=== PATIENT | male | born 1950 | race Caucasian/White ===

== ENCOUNTER 2017-09-03 10:41 | Outpatient (CLI) | payer BC ==
--- NOTE | 2017-09-03 11:48 | RAD ---
PA AND LATERAL CHEST XRAY: DATE: 09/03/17. HISTORY: Dyspnea. COMPARISON: 09/04/16. FINDINGS: The cardiac silhouette and pulmonary vasculature are within normal limits. Lungs remain hyperexpande d with flattening of the hemidiaphragms suggesting an element of COPD. Lungs are otherwise clear. V ascular calcifications are seen in a tortuous thoracic aorta. Degenerative changes are again noted i n the spine. There has been no interval change compared to the prior exam. IMPRESSION: 1. No acute cardiopulmonary process. 2. Findings again suggesting chronic obstructive pulmonary disease. POS: LEONEL
== END 2017-09-03 10:42 | disposition home or self-care (01) ==
LOC: RAD 10:41
PROVIDERS: ATTEND Internal Medicine Critical Care Medicine
DX: R06.00 Dyspnea, unspecified (principal)
CPT/HCPCS: 71046

== ENCOUNTER 2018-09-17 09:36 | Outpatient (CLI) | payer BC ==
--- NOTE | 2018-09-17 10:58 | RAD ---
RADIOGRAPH CHEST 2 VIEWS: DATE: 09-17-18 HISTORY: 68-year-old female with dyspnea. FINDINGS: There is hyperinflation of the lungs, consistent with COPD. The thoracic aorta is tortuous and ectat ic. There is no evidence of air space density, pneumothorax, or pulmonary edema. There is no cardio megaly or pleural effusion. IMPRESSION: 1) No acute cardiopulmonary findings. 2) Emphysema. 3) Ectasia of thoracic aorta. saul POS: JOSE
== END 2018-09-17 09:37 | disposition home or self-care (01) ==
LOC: RAD 09:36
PROVIDERS: ATTEND Internal Medicine Critical Care Medicine
DX: R06.00 Dyspnea, unspecified (principal); J43.9 Emphysema, unspecified; I77.810 Thoracic aortic ectasia
CPT/HCPCS: 71046

== ENCOUNTER 2019-02-28 09:34 | Outpatient (CLI) | payer BC ==
--- NOTE | 2019-02-28 10:57 | ULT ---
Sonogram abdomen complete HISTORY: Abdominal pain. Diarrhea. FINDINGS: Gallbladder has a normal appearance without evidence of stones. Common duct is 0.2 cm. Live r unremarkable without focal mass or intrahepatic biliary dilatation. No free fluid. Prominent calcification throughout the visualized portions of abdominal aorta. The spleen, kidneys, a nd visualized portions of inferior vena cava and pancreas are unremarkable. IMPRESSION: No evidence of gallstones or biliary obstruction. Prominent atherosclerosis.
== END 2019-02-28 09:35 | disposition home or self-care (01) ==
LOC: SCSULT 09:34
PROVIDERS: ATTEND Family Medicine
DX: K59.1 Functional diarrhea (principal); I70.0 Atherosclerosis of aorta
CPT/HCPCS: 93975

== ENCOUNTER 2021-05-30 08:28 | Outpatient (CLI) | payer MEDICARE, BC | END 2021-05-30 08:29 | disposition home or self-care (01) | LOC: RAD 08:28 | PROVIDERS: ATTEND Internal Medicine Critical Care Medicine | DX: R06.00 Dyspnea, unspecified (principal); J43.9 Emphysema, unspecified; I27.20 Pulmonary hypertension, unspecified | CPT/HCPCS: 71046 ==

== ENCOUNTER 2022-08-28 10:52 | Outpatient (CLI) | payer MEDICARE, BC | END 2022-08-28 10:53 | disposition home or self-care (01) | LOC: RAD 10:52 | PROVIDERS: ATTEND Internal Medicine Critical Care Medicine | DX: R06.00 Dyspnea, unspecified (principal); R91.8 Other nonspecific abnormal finding of lung field; I77.810 Thoracic aortic ectasia; Q25.46 Tortuous aortic arch; I28.9 Disease of pulmonary vessels, unspecified | CPT/HCPCS: 71046 ==

== ENCOUNTER 2023-03-15 15:31 | Inpatient (IN) | payer BC, MEDICARE ==
[2023-03-15] MEDS ORDERED: Lidocaine 1% w/Epinephrine 1:100K 20 ML VIAL ONE (16:32)
[2023-03-15] MEDS ORDERED: Ipratropium/Albuterol 3 ML NEB ONE (17:07)
[2023-03-15] MEDS ORDERED: Morphine 4 MG/ML VIAL ONE (18:17)
[2023-03-15 18:59] LABS: #Neutrophils 3.6 thou/uL (1.40-6.50); %Basophils 0.3 % (0.0-1.0); %Lymphocytes 5.4 % (21.0-51.0); %Neutrophils 93.3 % (42.0-75.0); Hematocrit 49.9 % (42.0-52.0); Hemoglobin 16.5 g/dL (14.0-18.0); Mean Corpuscular HGB CONC 33.1 g/dL (32.0-36.0); Mean Corpuscular Hemoglobin 35.8 pg (27.0-31.0); Mean Corpuscular Volume 108.2 fl (78.0-98.0); Mean Platelet Volume 9.6 fL (7.4-10.4); Platelet Count 179 10x3/uL (130-400); RBC Distribution Width 14.2 % (11.5-14.5); Red Blood Cell (RBC) Count 4.61 mill/uL (4.70-6.10); White Blood Cell (WBC) Count 3.9 10x3/uL (4.8-10.8)
[2023-03-15 19:25] LABS: ALT (SGPT) 113 U/L (8-55); AST (SGOT) 109 U/L (5-34); Albumin 3.9 g/dL (3.4-4.8); Alkaline Phosphatase 69 U/L (40-110); Anion Gap 14 mmol/L (10-20); BUN (Urea Nitrogen) 18 mg/dL (8.4-25.7); Bilirubin, Total 1.1 mg/dL (0.2-1.2); Calc. Creatinine Clearance 0 mL/min (70-130); Calcium 8.5 mg/dL (7.8-10.44); Carbon Dioxide 30 mmol/L (23-31); Chloride 96 mmol/L (98-107); Estimated GFR 93; Globulin 3.4 g/dL (2.4-3.5); Glucose 162 mg/dL (83-110); Potassium 4.1 mmol/L (3.5-5.1); Protein, Total 7.3 g/dL (5.8-8.1); Sodium 136 mmol/L (136-145)
[2023-03-15] MEDS ORDERED: Ondansetron ODT 4 MG TAB PO PRN (20:34)
[2023-03-15] MEDS ORDERED: Acetaminophen 650 MG Suppository PR PRN (20:34)
[2023-03-15] MEDS ORDERED: Ondansetron PF 4 MG/2 ML Vial IVP PRN (20:34)
[2023-03-15] MEDS ORDERED: Acetaminophen 325 MG TAB PO PRN (20:34)
[2023-03-15] MEDS ORDERED: Ipratropium/Albuterol 3 ML NEB NEB PRN ×2 (20:37→22:06)
[2023-03-15] MEDS ORDERED: Melatonin 3 MG TAB PO PRN (21:47)
[2023-03-15] MEDS: Oxazepam 10 MG CAP PO SCH (22:41)
[2023-03-16] MEDS: methylPREDNISolone Sod Succ 40 MG VIAL IVP SCH ×3 (00:27→12:33)
[2023-03-16 03:42] LABS: #Monocytes 0.2 thou/uL (0.11-0.59); #Neutrophils 3.6 thou/uL (1.40-6.50); %Basophils 0.2 % (0.0-1.0); %Lymphocytes 8.5 % (21.0-51.0); %Monocytes 5.6 % (0.0-10.0); %Neutrophils 85.5 % (42.0-75.0); Hematocrit 48.1 % (42.0-52.0); Hemoglobin 15.8 g/dL (14.0-18.0); Mean Corpuscular HGB CONC 32.8 g/dL (32.0-36.0); Mean Corpuscular Volume 106.4 fl (78.0-98.0); Mean Platelet Volume 9.8 fL (7.4-10.4); Platelet Count 166 10x3/uL (130-400); RBC Distribution Width 13.9 % (11.5-14.5); Red Blood Cell (RBC) Count 4.52 mill/uL (4.70-6.10); White Blood Cell (WBC) Count 4.3 10x3/uL (4.8-10.8)
[2023-03-16 04:15] LABS: Anion Gap 13 mmol/L (10-20); BUN (Urea Nitrogen) 18 mg/dL (8.4-25.7); Calc. Creatinine Clearance 62 mL/min (70-130); Calcium 8.4 mg/dL (7.8-10.44); Carbon Dioxide 32 mmol/L (23-31); Chloride 96 mmol/L (98-107); Estimated GFR 94; Glucose 112 mg/dL (83-110); Potassium 4.8 mmol/L (3.5-5.1); Sodium 136 mmol/L (136-145)
[2023-03-16 04:32] LABS: HBSAg Index 0.23 S/CO (0-0.99); Hep A IgM AB Non-Reactive S/CO (NonReactive); Hep A IgM S/CO 0.16 S/CO (0-0.79); Hep B Surf Ag Non-Reactive S/CO (NonReactive); Hep C IgG Ab Non-Reactive S/CO (NonReactive); Hep C Index 0.14 S/CO (0-0.79)
[2023-03-16 04:43] LABS: HBCM Index 1.69 S/CO (0-0.79); Hepatitis B Core IgM Abs Reactive S/CO (NonReactive)
[2023-03-16] MEDS: Oxazepam 10 MG CAP PO SCH ×3 (06:35→21:14)
[2023-03-16] MEDS: Folic Acid/Vit B Comp W-C PO SCH (08:38)
[2023-03-16] MEDS: Multivitamin W/ Minerals 1 TAB PO SCH (08:38)
[2023-03-16] MEDS: Thiamine 100 MG TAB PO SCH (08:38)
[2023-03-16] MEDS: Famotidine 20 MG TAB PO SCH ×2 (08:38→21:14)
[2023-03-16 10:54] VITALS: BMI 18.5
[2023-03-16] MEDS: Ipratropium/Albuterol 3 ML NEB NEB SCH ×2 (18:25→23:41)
[2023-03-17] MEDS: Oxazepam 10 MG CAP PO SCH ×3 (05:48→21:35)
[2023-03-17 06:33] LABS: HBSAB Concentration Less than 8.00 mIU/mL; Hep B Core Total Ab Non-Reactive (NonReactive); Hep B Core Total Index 0.09 S/CO (0-0.79); Hep B Surf AB Non-Reactive (NonReactive); Hep B Surf Ag Non-Reactive S/CO (NonReactive)
[2023-03-17] MEDS: Ipratropium/Albuterol 3 ML NEB NEB SCH ×4 (07:18→23:00)
[2023-03-17] MEDS: Multivitamin W/ Minerals 1 TAB PO SCH (08:24)
[2023-03-17] MEDS: Famotidine 20 MG TAB PO SCH ×2 (08:24→21:35)
[2023-03-17] MEDS: Folic Acid/Vit B Comp W-C PO SCH (08:24)
[2023-03-17] MEDS: Thiamine 100 MG TAB PO SCH (08:24)
[2023-03-17] MEDS: methylPREDNISolone Sod Succ 40 MG VIAL IVP SCH (08:25)
[2023-03-17] MEDS: Ibuprofen 200 MG TAB PO PRN (08:50)
[2023-03-17] MEDS ORDERED: Iopamidol-370 76% 500 ML MDV (1 ML CHARGE) ONE (09:27)
[2023-03-17 10:07] LABS: HIV (1/2) Antibody/Antigen Non-Reactive (NonReactive); HIV 1/2 INDEX 0.25 S/CO (<1.00)
[2023-03-18] MEDS: Oxazepam 10 MG CAP PO SCH ×3 (05:51→21:04)
[2023-03-18] MEDS: Ipratropium/Albuterol 3 ML NEB NEB SCH ×3 (07:38→18:53)
[2023-03-18] MEDS ORDERED: LevoFLOXacin 750 MG TAB PO SCH (08:00)
[2023-03-18] MEDS ORDERED: Piperacillin/Tazobactam 3.375 GM in Sodium Chloride 0.9% 100 ML IVPB SCH (09:15)
[2023-03-18] MEDS: Folic Acid/Vit B Comp W-C PO SCH (09:26)
[2023-03-18] MEDS: Famotidine 20 MG TAB PO SCH ×2 (09:27→20:22)
[2023-03-18] MEDS: methylPREDNISolone Sod Succ 40 MG VIAL IVP SCH (09:27)
[2023-03-18] MEDS: Multivitamin W/ Minerals 1 TAB PO SCH (09:27)
[2023-03-18] MEDS: Thiamine 100 MG TAB PO SCH (09:27)
[2023-03-18] MEDS: Ibuprofen 200 MG TAB PO PRN (09:29)
[2023-03-18] MEDS: Piperacillin/Tazobactam 3.375 GM in Sodium Chloride 0.9% 100 ML IVPB SCH ×2 (14:38→21:05)
[2023-03-19] MEDS: Ipratropium/Albuterol 3 ML NEB NEB SCH ×2 (00:26→07:17)
[2023-03-19] MEDS: Piperacillin/Tazobactam 3.375 GM in Sodium Chloride 0.9% 100 ML IVPB SCH (06:00)
[2023-03-19] MEDS ORDERED: LevoFLOXacin 750 MG TAB PO SCH (06:00)
[2023-03-19] MEDS: Oxazepam 10 MG CAP PO SCH (06:01)
[2023-03-19] MEDS: Multivitamin W/ Minerals 1 TAB PO SCH (08:27)
[2023-03-19] MEDS: Folic Acid/Vit B Comp W-C PO SCH (08:27)
[2023-03-19] MEDS: Famotidine 20 MG TAB PO SCH (08:27)
[2023-03-19] MEDS: methylPREDNISolone Sod Succ 40 MG VIAL IVP SCH (08:27)
[2023-03-19] MEDS: Thiamine 100 MG TAB PO SCH (08:27)
[2023-03-19 12:29] VITALS: BP 119/73; TEMP 98
[2023-03-20 19:38] LABS: HBV as IU/mL HBV DNA not detected IU/mL (.)
== END 2023-03-19 12:19 | disposition home or self-care (01) | DRG 199 ==
LOC: ERS 15:31 → CCU 19:40 → T4-A 03-16 15:34
PROVIDERS: ADMIT Student in an Organized Health Care Education/Training Program; ATTEND Family Medicine
PROC: 0W9930Z Drainage of Right Pleural Cavity with Drainage Device, Percutaneous Approach (ICD-10-PCS; principal; 2023-03-15)
DX: J93.83 Other pneumothorax (principal); J18.9 Pneumonia, unspecified organism; J96.01 Acute respiratory failure with hypoxia; E44.0 Moderate protein-calorie malnutrition; B19.10 Unspecified viral hepatitis B without hepatic coma; Z79.899 Other long term (current) drug therapy; Z79.82 Long term (current) use of aspirin; Z98.890 Other specified postprocedural states; F41.9 Anxiety disorder, unspecified; Z87.891 Personal history of nicotine dependence; M81.0 Age-related osteoporosis without current pathological fracture; R74.01 Elevation of levels of liver transaminase levels; J44.9 Chronic obstructive pulmonary disease, unspecified
CPT/HCPCS: 36415; 71045; 71250; 74177; 76705; 80048; 80053; 80074; 85025; 86704; 86706; 86707; 87340; 87350; 87389; 87517; 94640; 96374; J2270; J2543; J2920; J3490; J7620; Q9967

== ENCOUNTER 2023-06-21 09:53 | Day surgery (SDC) | payer BC, MEDICARE ==
[2023-06-20 12:48] VITALS: BMI 19.4
[2023-06-21] MEDS ORDERED: PROPOFOL 20 ML ONE ×2 (12:38→12:58)
== END 2023-06-21 14:17 | disposition home or self-care (01) ==
LOC: SDC 09:53
PROVIDERS: ATTEND Internal Medicine Gastroenterology
PROC: 0DBM8ZZ Excision of Descending Colon, Via Natural or Artificial Opening Endoscopic (ICD-10-PCS; principal; 2023-06-21)
PROC: 0DBN8ZZ Excision of Sigmoid Colon, Via Natural or Artificial Opening Endoscopic (ICD-10-PCS; 2023-06-21)
PROC: 0DBF8ZZ Excision of Right Large Intestine, Via Natural or Artificial Opening Endoscopic (ICD-10-PCS; 2023-06-21)
DX: K63.5 Polyp of colon (principal); K57.30 Diverticulosis of large intestine without perforation or abscess without bleeding; K64.8 Other hemorrhoids; K64.4 Residual hemorrhoidal skin tags; K63.89 Other specified diseases of intestine; I10 Essential (primary) hypertension; E78.5 Hyperlipidemia, unspecified; J18.9 Pneumonia, unspecified organism; K75.9 Inflammatory liver disease, unspecified; J43.9 Emphysema, unspecified; Z86.010 Personal history of colon polyps; Z87.891 Personal history of nicotine dependence; Z79.82 Long term (current) use of aspirin
CPT/HCPCS: 88305; J2704